=== PATIENT | female | born 1975 | race Caucasian/White ===

== ENCOUNTER 2016-12-26 10:33 | Emergency (ER) | payer MEDICAID ==
[2016-12-26] MEDS ORDERED: POTASSIUM BICARB 25 MEQ TABLET PO STA (13:06)
[2016-12-26] MEDS ORDERED: POTASSIUM BICARB 25 MEQ TABLET PO ONE (13:10)
[2016-12-26] MEDS ORDERED: ONDANSETRON ODT 4 MG TABLET TL STA (14:16)
[2016-12-26] MEDS ORDERED: MAG HYDROX/AL HYDROX/SIMETH 30 ML UDC PO STA (14:16)
[2016-12-26] MEDS ORDERED: MAG HYDROX/AL HYDROX/SIMETH 30 ML UDC ONE (14:25)
[2016-12-26] MEDS ORDERED: ONDANSETRON ODT 4 MG TABLET ONE (14:25)
[2016-12-26] MEDS ORDERED: LORazepam 0.5 MG TABLET PO STA (20:26)
[2016-12-26] MEDS ORDERED: LORazepam 0.5 MG TABLET ONE (20:29)
== END 2016-12-26 21:12 | disposition home or self-care (01) ==
DX: T42.6X1A Poisoning by other antiepileptic and sedative-hypnotic drugs, accidental (unintentional), initial encounter (principal); R53.83 Other fatigue; Y92.019 Unspecified place in single-family (private) house as the place of occurrence of the external cause; F32.9 Major depressive disorder, single episode, unspecified; E05.90 Thyrotoxicosis, unspecified without thyrotoxic crisis or storm; F10.129 Alcohol abuse with intoxication, unspecified
CPT/HCPCS: 36415; 80053; 80306; 80307; 80320; 80329; 81003; 81025; 83690; 84443; 85025; 93005; 99283; 99284; A9270; Q0162

== ENCOUNTER 2017-07-04 08:00 | Outpatient (CLI) | payer MEDICAID ==
[2017-07-04 14:17] LABS: INR 1.3 (0.8-1.2); PT - PROTHROMBIN TIME 14.2 secs (9.9-12.6)
[2017-07-04 15:01] LABS: THYROID STIMULATING HORMONE 1.86 uIU/mL (0.34-5.60)
[2017-07-04 15:02] LABS: ALBUMIN/GLOBULIN RATIO 1.4 (1.0-2.2); BILIRUBIN,TOTAL 0.3 mg/dL (0.2-1.0); BUN - BLOOD UREA NITROGEN 15 mg/dL (6-20); CALCIUM 8.2 mg/dL (8.5-10.3); CARBON DIOXIDE - CO2 29 mmol/L (21-32); CHLORIDE 108 mmol/L (101-111); CREATININE 0.7 mg/dL (0.4-1.0); GFR - MDRD 93 (>89); POTASSIUM 2.9 mmol/L (3.5-5.0); SODIUM 144 mmol/L (135-145); TOTAL PROTEIN 6.2 g/dL (6.7-8.2)
[2017-07-04 15:03] LABS: GLUCOSE 55 mg/dL (70-100)
[2017-07-04 15:09] LABS: FOLLICLE STIMULATING HORMONE 7.84 mIU/mL
[2017-07-04 15:10] LABS: LUTEINIZING HORMONE 2.34 mIU/mL
== END 2017-07-04 08:01 | disposition home or self-care (01) ==
LOC: LAB.N 08:00
PROVIDERS: ATTEND Nurse Practitioner Gerontology
DX: N91.2 Amenorrhea, unspecified (principal); R74.8 Abnormal levels of other serum enzymes; R94.6 Abnormal results of thyroid function studies; Z79.01 Long term (current) use of anticoagulants
CPT/HCPCS: 36415; 80053; 82670; 83001; 83002; 84443; 84703; 85610

== ENCOUNTER 2017-07-10 07:40 | Outpatient (CLI) | payer MEDICAID | END 2017-07-10 07:41 | disposition home or self-care (01) | LOC: LAB.N 07:40 | PROVIDERS: ATTEND Nurse Practitioner Gerontology | DX: Z79.01 Long term (current) use of anticoagulants (principal) | CPT/HCPCS: 85610 ==

== ENCOUNTER 2017-07-12 07:44 | Outpatient (CLI) | payer MEDICAID | END 2017-07-12 07:45 | disposition home or self-care (01) | LOC: LAB.N 07:44 | PROVIDERS: ATTEND Nurse Practitioner Gerontology | DX: Z79.01 Long term (current) use of anticoagulants (principal) | CPT/HCPCS: 85610 ==

== ENCOUNTER 2017-07-16 08:39 | Outpatient (CLI) | payer MEDICAID | END 2017-07-16 08:40 | disposition home or self-care (01) | LOC: LAB.N 08:39 | PROVIDERS: ATTEND Nurse Practitioner Gerontology | DX: Z79.01 Long term (current) use of anticoagulants (principal) | CPT/HCPCS: 85610 ==

== ENCOUNTER 2017-07-26 18:14 | Emergency (ER) | payer MEDICAID ==
[2017-07-26 18:27] VITALS: BP 106/74
--- NOTE | 2017-07-26 21:29 | ED Physician Documentation ---
PD HPI WOUND RECHECK - Stated complaint Stated Complaint: INCISION DRAINAGE - Chief complaint Chief Complaint: General - Histroy obtained from History obtained from: Patient - History of Present Illness Location: Abdomen Timing - onset: Today Associated symptoms: Drainage Similar symptoms before: Has not had sx before Recently seen: Surgery - Additional information Additional information: Patient is a 41 year old female who recently had hernia repair. Patient states that today she happened to be drinking chocolate milk with her shirt off. Patient states that after she drank some milk she looked down and her wound looked like it was also leaking chocolate milk. Review of Systems Constitutional: denies: Fever, Chills Eyes: reports: Reviewed and negative Ears: reports: Reviewed and negative Nose: reports: Reviewed and negative Throat: reports: Reviewed and negative Cardiac: denies: Chest pain / pressure, Palpitations Respiratory: denies: Dyspnea, Cough GI: reports: Abdominal Pain. denies: Nausea, Vomiting : denies: Dysuria, Frequency Skin: reports: Lesions, Laceration (s) Musculoskeletal: denies: Neck pain, Back pain Neurologic: reports: Reviewed and negative Immunocompromised: denies: Immunocompromised PD PAST MEDICAL HISTORY - Past Medical History Neuro: Headache/migraine, Other Endocrine/Autoimmune: HyPERthyroidism GI: Other Psych: Depression - Past Surgical History Past Surgical History: Yes General: Cholecystectomy, Other - Present Medications Home Medications: Ambulatory Orders Medication Instructions Recorded Confirmed FLUoxetine [PROzac] 10 mg PO DAILY 03/25/15 07/26/17 Dextroamphetamine/Amphetamine 35 mg PO DAILY 07/26/17 07/26/17 [Adderall 30 mg Tablet] Oxycodone HCl/Acetaminophen 1 tab PO DAILY 07/26/17 07/26/17 [Percocet 5-325 mg Tablet] acetaZOLAMIDE [Diamox] 250 mg PO DAILY 07/26/17 07/26/17 methIMAzole [Tapazole] 20 mg PO DAILY 07/26/17 07/26/17 - Allergies Allergies/Adverse Reactions: Allergies Allergy/AdvReac Type Severity Reaction Status Date / Time Heparin Analogues Allergy Mild Rash Verified 04/19/16 19:38 - Social History Does the pt smoke?: No Smoking Status: Never smoker Does the pt drink ETOH?: No Does the pt have substance abuse?: No Substance Use and Type: Marijuana - Immunizations Immunizations are current?: Yes - POLST Patient has POLST: No PD ED PE NORMAL - Vitals Vital signs reviewed: Yes - General General: Alert and oriented X 3, No acute distress - HEENT HEENT: Atraumatic, PERRL - Neck Neck: Supple, no meningeal sign - Cardiac Cardiac: RRR, No murmur - Respiratory Respiratory: No respiratory distress - Extremities Extremities: No deformity, Normal ROM s pain, No edema - Neuro Neuro: Alert and oriented X 3, No motor deficit, No sensory deficit, Normal speech - Psych Psych: Normal mood, Normal affect PD ED PE EXPANDED - Abdomen Abdomen: Surgical scars (well healing surgical scar, with minimal serous drainage) Results - Vitals Vitals: Vital Signs - 24 hr 07/26/17 18:25 Temperature 37.2 C Heart Rate 102 H Respiratory 18 Rate Blood Pressure 106/74 O2 Saturation 97 Oxygen O2 Source Room air PD MEDICAL DECISION MAKING - ED course Complexity details: reviewed old records, re-evaluated patient, considered differential, d/w patient ED course: Patient was seen and examined at bedside. patient's wound was well appearing with minimal serous discharge. Patient was able to tolerate PO without any difficulty and without any drainage. patient required no imaging or further work up and was stable for discharge with outpatient follow up. Departure - Departure Disposition: 01 Home, Self Care Clinical Impression: Encounter for postoperative wound check Condition: Good Instructions: ED Wound Care Follow-Up: Neetu Wong ARNP [Primary Care Provider] - Within 1 week Comments: Your wound looks well appearing today. You should continue with your wound care and follow up with your surgeon at your pre-determined appointment. You may return to the emergency department at any time as needed for new, worsening or uncontrollable symptoms. Discharge Date/Time: 07/26/17 21:40
== END 2017-07-26 21:40 | disposition home or self-care (01) ==
LOC: ED 18:14
DX: Z48.817 Encounter for surgical aftercare following surgery on the skin and subcutaneous tissue (principal)
CPT/HCPCS: 99282; 99283

== ENCOUNTER 2018-06-27 09:48 | Outpatient (CLI) | payer MEDICAID ==
[2018-06-27 10:00] LABS: BASOPHILS % (AUTO) 0.8 %; EOSINOPHILS # (AUTO) 0.1 10^3/uL (0.0-0.7); EOSINOPHILS % (AUTO) 2.7 %; HGB - HEMOGLOBIN 10.4 g/dL (12.0-16.0); LYMPHOCYTES # (AUTO) 1.4 10^3/uL (1.5-3.5); LYMPHOCYTES % (AUTO) 28.2 %; MEAN CORPUSCULAR HEMOGLOBIN 30.4 pg (27.0-31.0); MEAN CORPUSCULAR VOLUME 92.1 fL (81.0-99.0); MEAN PLATELET VOLUME 7.7 fL (7.9-10.8); MONOCYTES # (AUTO) 0.5 10^3/uL (0.0-1.0); MONOCYTES % (AUTO) 9.9 %; NEUTROPHILS % (AUTO) 58.4 %; PLT - PLATELET COUNT 336 10^3/uL (130-450); RED BLOOD COUNT 3.43 10^6/uL (4.20-5.40); RED CELL DISTRIBUTION WIDTH 15.2 % (12.0-15.0); WHITE BLOOD COUNT 5.1 x10^3/uL (4.8-10.8)
== END 2018-06-27 09:49 | disposition home or self-care (01) ==
LOC: LAB 09:48
PROVIDERS: ATTEND Nurse Practitioner Psychiatric/Mental Health
DX: F41.1 Generalized anxiety disorder (principal)
CPT/HCPCS: 36415; 85025

== ENCOUNTER 2019-01-02 11:19 | Emergency (ER) | payer MEDICAID ==
[2019-01-02 12:26] LABS: EOSINOPHILS # (AUTO) 0.1 10^3/uL (0.0-0.7); HGB - HEMOGLOBIN 9.3 g/dL (12.0-16.0); LYMPHOCYTES # (AUTO) 1.3 10^3/uL (1.5-3.5); LYMPHOCYTES % (AUTO) 31.1 %; MEAN CORPUSCULAR HEMOGLOBIN 26.8 pg (27.0-31.0); MEAN CORPUSCULAR HGB CONC 32.6 g/dL (32.0-36.0); MEAN CORPUSCULAR VOLUME 82.1 fL (81.0-99.0); MEAN PLATELET VOLUME 7.2 fL (7.9-10.8); MONOCYTES # (AUTO) 0.4 10^3/uL (0.0-1.0); MONOCYTES % (AUTO) 9.4 %; NEUTROPHILS # (AUTO) 2.4 10^3/uL (1.5-6.6); NEUTROPHILS % (AUTO) 56.5 %; PLT - PLATELET COUNT 386 10^3/uL (130-450); RED BLOOD COUNT 3.48 10^6/uL (4.20-5.40); RED CELL DISTRIBUTION WIDTH 17.4 % (12.0-15.0); WHITE BLOOD COUNT 4.3 x10^3/uL (4.8-10.8)
[2019-01-02 12:39] LABS: ALBUMIN 2.4 g/dL (3.2-5.5); ALBUMIN/GLOBULIN RATIO 0.8 (1.0-2.2); BILIRUBIN,TOTAL 0.6 mg/dL (0.2-1.0); CALCIUM 7.3 mg/dL (8.5-10.3); CREATININE 0.6 mg/dL (0.4-1.0); TOTAL PROTEIN 5.4 g/dL (6.7-8.2)
[2019-01-02 12:51] LABS: BILIRUBIN,URINE NEGATIVE (NEGATIVE); GLUCOSE, URINE (UA) NEGATIVE (NEGATIVE); KETONES,URINE (UA) TRACE mg/dL (NEGATIVE); LEUKOCYTE ESTERASE, URINE SMALL (NEGATIVE); NITRITE,URINE POSITIVE (NEGATIVE); OCCULT BLOOD,URINE NEGATIVE (NEGATIVE); PROTEIN,URINE TRACE mg/dL (NEGATIVE); UROBILINOGEN,URINE 1 (NORMAL) E.U./dL (NORMAL)
[2019-01-02 12:55] LABS: CLARITY,URINE CLOUDY (CLEAR); HCG UR QUAL NEGATIVE
[2019-01-02] MEDS ORDERED: FUROSEMIDE 20 MG TABLET PO STA (12:57)
[2019-01-02 12:59] LABS: BACTERIA,URINE Moderate /HPF (None Seen); RBC,URINE 0-5 /HPF (0-5); SQUAMOUS EPITHELIAL CELL,UR MANY Squamous (<= Few)
--- NOTE | 2019-01-02 13:44 | ED Physician Documentation ---
History of Present Illness - Stated complaint Stated Complaint: SWELLING IN LOWER ABD AND LEGS - Chief complaint Chief Complaint: General - History obtained from History obtained from: Patient - History of Present Illness Timing: How many days ago (4) - Additonal information Additional information: The patient is a 43-year-old female with a history of arthritis and daily alcohol use, who complains of swelling in her legs and feet as well as her fingers over the past 4 days. She has attributed it to an arthritic flare, but has not had this degree of swelling in the past. She denies fever, headache, cough or shortness of breath. She denies abdominal pain, nausea, vomiting, or dysuria. Past surgical history is significant for cholecystectomy, and umbili ninoska hernia repair. Review of Systems Constitutional: denies: Fever Nose: denies: Congestion Throat: denies: Sore throat Cardiac: denies: Chest pain / pressure Respiratory: denies: Dyspnea, Cough GI: denies: Abdominal Pain, Nausea, Vomiting : denies: Dysuria Skin: denies: Rash Musculoskeletal: reports: Extremity swelling. denies: Back pain Neurologic: denies: Focal weakness, Numbness, Headache PD PAST MEDICAL HISTORY - Past Medical History Endocrine/Autoimmune: HyPERthyroidism GI: Other Psych: Depression - Past Surgical History Past Surgical History: Yes General: Cholecystectomy, Other (Gastric Bypass) Other past surgical history: Incisional hernia repair - Present Medications Home Medications: Ambulatory Orders Medication Instructions Recorded Confirmed FLUoxetine [PROzac] 10 mg PO DAILY 03/25/15 01/02/19 Dextroamphetamine/Amphetamine 35 mg PO DAILY 07/26/17 01/02/19 [Adderall 30 mg Tablet] QUEtiapine [SEROquel] 50 mg PO QPM 01/02/19 01/02/19 - Allergies Allergies/Adverse Reactions: Allergies Allergy/AdvReac Type Severity Reaction Status Date / Time Heparin Analogues Allergy Mild Rash Verified 01/02/19 11:31 - Social History Does the pt smoke?: No Smoking Status: Never smoker Does the pt drink ETOH?: No Does the pt have substance abuse?: No - Immunizations Immunizations are current?: Yes - POLST Patient has POLST: No PD ED PE NORMAL - Vitals Vital signs reviewed: Yes (normal) - General General: Alert and oriented X 3, Well developed/nourished - HEENT HEENT: Atraumatic, Moist mucous membranes, Pharynx benign - Neck Neck: No adenopathy, No JVD - Cardiac Cardiac: RRR - Respiratory Respiratory: No respiratory distress, Clear bilaterally - Abdomen Abdomen: Soft, Non tender - Back Back: No CVA TTP - Derm Derm: No rash - Extremities Extremities: No tenderness to palpate, No calf tenderness / cord, Other (1+ peripheral edema.) - Neuro Neuro: Alert and oriented X 3, No motor deficit, No sensory deficit Results - Vitals Vitals: Oxygen O2 Source Room air - Labs Labs: Laboratory Tests 01/02/19 01/02/19 01/02/19 12:21 12:21 12:35 WBC 4.3 L RBC 3.48 L Hgb 9.3 L Hct 28.6 L MCV 82.1 MCH 26.8 L MCHC 32.6 RDW 17.4 H Plt Count 386 MPV 7.2 L Neut # (Auto) 2.4 Lymph # (Auto) 1.3 L Ward # (Auto) 0.4 Eos # (Auto) 0.1 Baso # (Auto) 0.0 Absolute Nucleated RBC 0.00 Nucleated RBC % 0.0 Sodium 138 Potassium 3.2 L Chloride 97 L Carbon Dioxide 32 Anion Gap 9.0 BUN 13 Creatinine 0.6 Estimated GFR (MDRD) 110 Glucose 93 Calcium 7.3 L Total Bilirubin 0.6 AST 46 H ALT 42 Alkaline Phosphatase 152 H Total Protein 5.4 L Albumin 2.4 L Globulin 3.0 Albumin/Globulin Ratio 0.8 L Lipase 26 Urine Color YELLOW Urine Clarity CLOUDY Urine pH 7.0 Ur Specific [place] 1.020 Urine Protein TRACE Urine Glucose (UA) NEGATIVE Urine Ketones TRACE Urine Occult Blood NEGATIVE Urine Nitrite POSITIVE H Urine Bilirubin NEGATIVE Urine Urobilinogen 1 (NORMAL) Ur Leukocyte Esterase SMALL H Urine RBC 0-5 Urine WBC 6-10 H Ur Squamous Epith Cells MANY Squamous H Urine Bacteria Moderate H Ur Microscopic Review INDICATED Urine Culture Comments NOT INDICATED Urine HCG, Qual NEGATIVE PD MEDICAL DECISION MAKING - ED course Complexity details: reviewed results, re-evaluated patient, considered differential, d/w patient ED course: The patient's presentation is significant for peripheral edema, without evidence of congestive heart failure. I suspect her edema may be related to daily alcohol use. In addition she is anemic, with a hemoglobin of 9.3 and hematocrit 28.6. Her urinalysis is equivocal, with many squamous cells, indicating contaminated specimen. There is no clinical evidence of acute pulmonary edema, deep venous thrombosis, or renal failure, with normal BUN and creatinine of 13 and 0.6. Treatment in the emergency department included administration of Lasix 20 mg orally. I discussed with her the importance of alcohol cessation, outpatient follow-up, as well as potentially worrisome signs or symptoms that should prompt reevaluation in the emergency department. Departure - Departure Disposition: 01 Home, Self Care Clinical Impression: Pedal edema Anemia Qualifiers: Anemia type: unspecified type Qualified Code(s): D64.9 - Anemia, unspecified Condition: Stable Instructions: ED Edema Legs Bilateral Follow-Up: Neetu oWng ARNP [Credentialed Staff Provider] - Comments: Keep your legs elevated as much the time as possible. Minimize or discontinue alcohol completely. Follow-up with your primary physician within 1-2 weeks. Call to schedule appointment. Return to the emergency department if you develop increasing pain or swelling of your legs, or otherwise worsening symptoms. Discharge Date/Time: 01/02/19 13:48
[2019-01-02 13:48] VITALS: BP 130/78
== END 2019-01-02 13:48 | disposition home or self-care (01) ==
LOC: ED 11:19
DX: R60.0 Localized edema (principal); D64.9 Anemia, unspecified
CPT/HCPCS: 36415; 80053; 81001; 81025; 83690; 85025; 99283; A9270; 81003; 87086

== ENCOUNTER 2019-03-05 11:09 | Outpatient (CLI) | payer MEDICAID ==
[2019-03-05 19:07] LABS: ALBUMIN 2.6 g/dL (3.2-5.5); ALBUMIN/GLOBULIN RATIO 0.7 (1.0-2.2); ALKALINE PHOSPHATASE 72 IU/L (42-121); ALT ALANINE AMINOTRANSFERASE 18 IU/L (10-60); AST ASPARTATE AMINOTRANSFERASE 24 IU/L (10-42); BILIRUBIN,TOTAL 0.3 mg/dL (0.2-1.0); BUN - BLOOD UREA NITROGEN 14 mg/dL (6-20); CALCIUM 8.2 mg/dL (8.5-10.3); CARBON DIOXIDE - CO2 29 mmol/L (21-32); CHLORIDE 104 mmol/L (101-111); CREATININE 0.8 mg/dL (0.4-1.0); GFR - MDRD 79 (>89); GLUCOSE 82 mg/dL (70-100); SODIUM 141 mmol/L (135-145); TOTAL PROTEIN 6.5 g/dL (6.7-8.2)
[2019-03-05 19:26] LABS: CRP - C-REACTIVE PROTEIN < 1.0 mg/dL (0-1.0)
[2019-03-05 19:32] LABS: RHEUMATOID FACTOR NEGATIVE (Negative)
[2019-03-07 15:01] LABS: ANA SCREEN NEGATIVE (NEGATIVE)
== END 2019-03-05 23:59 | disposition home or self-care (01) ==
LOC: LAB.N 11:09
PROVIDERS: ATTEND Nurse Practitioner Gerontology
DX: R74.8 Abnormal levels of other serum enzymes (principal); M25.50 Pain in unspecified joint
CPT/HCPCS: 36415; 80053; 85651; 86038; 86140; 86430

== ENCOUNTER 2019-04-03 21:54 | Emergency (ER) | payer MEDICAID ==
[2019-04-03] MEDS ORDERED: MAG HYDROX/AL HYDROX/SIMETH 30 ML UDC PO STA (22:17)
[2019-04-03] MEDS ORDERED: SUCRALFATE 1 GM/10 ML UDC PO STA (22:17)
[2019-04-03] MEDS ORDERED: PHENobarb/HYOSCY/ATROPINE/SCOP 5 ML UDC PO STA (22:17)
[2019-04-03] MEDS ORDERED: LIDOCAINE VISCOUS 2% 15 ML UDC MM STA (22:17)
[2019-04-03 22:19] LABS: BASOPHILS # (AUTO) 0.1 10^3/uL (0.0-0.1); EOSINOPHILS % (AUTO) 0.7 %; HGB - HEMOGLOBIN 8.6 g/dL (12.0-16.0); LYMPHOCYTES # (AUTO) 1.5 10^3/uL (1.5-3.5); LYMPHOCYTES % (AUTO) 21.6 %; MEAN CORPUSCULAR HEMOGLOBIN 28.3 pg (27.0-31.0); MEAN CORPUSCULAR HGB CONC 32.7 g/dL (32.0-36.0); MEAN CORPUSCULAR VOLUME 86.7 fL (81.0-99.0); MEAN PLATELET VOLUME 6.8 fL (7.9-10.8); MONOCYTES # (AUTO) 0.5 10^3/uL (0.0-1.0); MONOCYTES % (AUTO) 7.4 %; NEUTROPHILS # (AUTO) 4.8 10^3/uL (1.5-6.6); NEUTROPHILS % (AUTO) 69.3 %; PLT - PLATELET COUNT 321 10^3/uL (130-450); RED BLOOD COUNT 3.04 10^6/uL (4.20-5.40); RED CELL DISTRIBUTION WIDTH 16.7 % (12.0-15.0)
--- NOTE | 2019-04-03 22:21 | ED Physician Documentation ---
PD HPI ABD PAIN - Stated complaint Stated Complaint: ABD PX - Chief complaint Chief Complaint: Abd Pain - History obtained from History obtained from: Patient - History of Present Illness Timing - onset: How many hours ago (2) Timing - duration: Hours (2) Timing - details: Abrupt onset Pain level max: 8 Pain level now: 6 Quality: Aching, Pain Location: Epigastric Radiation: Other (mid back) Improved by: Other (states tums, nexium and ranitidine helped slightly) Worsened by: Other (started after taking iron and ibuprofen.) Associated symptoms: No: Fever, Nausea, Vomiting, Hematemesis, Diarrhea, Constipation, Melena, Hematochezia, Dysuria, Hematuria, Chest pain, Dizzy, Near syncope / syncope, Loss of appetite, Weight loss, Vaginal bleeding, Vaginal dc Similar symptoms before: Diagnosis (" stomach issues") Recently seen: Not recently seen Review of Systems Constitutional: denies: Fever, Chills Respiratory: denies: Cough GI: denies: Vomiting, Diarrhea : denies: Now EGA Skin: denies: Rash PD PAST MEDICAL HISTORY - Past Medical History Past Medical History: Yes Endocrine/Autoimmune: HyPERthyroidism GI: Other Psych: Depression - Past Surgical History Past Surgical History: Yes General: Cholecystectomy, Other - Present Medications Home Medications: Ambulatory Orders Medication Instructions Recorded Confirmed FLUoxetine [PROzac] 10 mg PO DAILY 03/25/15 01/02/19 Dextroamphetamine/Amphetamine 35 mg PO DAILY 07/26/17 01/02/19 [Adderall 30 mg Tablet] QUEtiapine [SEROquel] 50 mg PO QPM 01/02/19 01/02/19 Hyoscyamine Sulfate [Levsin-Sl] 0.125 mg SL Q6H PRN #14 tab.subl 04/03/19 Sucralfate [Carafate] 1 gm PO ACHS #60 tablet 04/03/19 - Allergies Allergies/Adverse Reactions: Allergies Allergy/AdvReac Type Severity Reaction Status Date / Time Heparin Analogues Allergy Mild Rash Verified 01/02/19 11:31 - Social History Does the pt smoke?: No Smoking Status: Never smoker Does the pt drink ETOH?: No Does the pt have substance abuse?: No - Immunizations Immunizations are current?: Yes - POLST Patient has POLST: No PD ED PE NORMAL - Vitals Vital signs reviewed: Yes - General General: Alert and oriented X 3, No acute distress - HEENT HEENT: Moist mucous membranes - Neck Neck: Supple, no meningeal sign - Cardiac Cardiac: RRR, Strong equal pulses - Respiratory Respiratory: No respiratory distress, Clear bilaterally - Abdomen Abdomen: Soft, Non distended, Other (TTP epigastric without peritoneal signs.) - Derm Derm: Warm and dry - Neuro Neuro: Alert and oriented X 3 Results - Vitals Vitals: Vital Signs - 24 hr 04/03/19 04/03/19 22:02 23:50 Temperature 36.4 C L Heart Rate 58 L 60 Respiratory 18 16 Rate Blood Pressure 126/50 L 118/70 O2 Saturation 100 99 Oxygen O2 Source Room air - Labs Labs: Laboratory Tests 04/03/19 04/03/19 22:13 22:13 WBC 7.0 RBC 3.04 L Hgb 8.6 L Hct 26.4 L MCV 86.7 MCH 28.3 MCHC 32.7 RDW 16.7 H Plt Count 321 MPV 6.8 L Neut # (Auto) 4.8 Lymph # (Auto) 1.5 Martin # (Auto) 0.5 Eos # (Auto) 0.0 Baso # (Auto) 0.1 Absolute Nucleated RBC 0.00 Nucleated RBC % 0.0 Sodium 138 Potassium 3.2 L Chloride 104 Carbon Dioxide 23 Anion Gap 11.0 BUN 19 Creatinine 0.7 Estimated GFR (MDRD) 92 Glucose 108 H Calcium 8.3 L Total Bilirubin 0.4 AST 23 ALT 16 Alkaline Phosphatase 81 Total Protein 6.8 Albumin 3.3 Globulin 3.5 Albumin/Globulin Ratio 0.9 L Lipase 31 PD MEDICAL DECISION MAKING - ED course Complexity details: reviewed results, re-evaluated patient, considered differential, d/w patient ED course: 43-year-old female with epigastric abdominal pain that started after taking iron and ibuprofen together. Feels better after GI cocktail. Likely gastritis. Has not been taking her Nexium and ranitidine reliably. Will start these at home. We will also prescribe Carafate and Levsin. Patient is well-appearing, nontoxic. Afebrile. No evidence of peritonitis. Patient counseled regarding signs and symptoms for which I believe and urgent re-evaluation would be necessary. Patient with good understanding of and agreement to plan and is comfortable going home at this time This document was made in part using voice recognition software. While efforts are made to proofread this document, sound alike and grammatical errors may occur. Departure - Departure Disposition: 01 Home, Self Care Clinical Impression: Gastritis Qualifiers: Gastritis type: unspecified gastritis Chronicity: acute Gastritis bleeding: without bleeding Qualified Code(s): K29.00 - Acute gastritis without bleeding Condition: Good Instructions: ED PUD Vs Gastritis Follow-Up: Neetu Wong ARNP [Primary Care Provider] - Within 1 week Prescriptions: Hyoscyamine Sulfate [Levsin-Sl] 0.125 mg SL Q6H PRN #14 tab.subl PRN Reason: Abdominal Pain Sucralfate [Carafate] 1 gm PO ACHS #60 tablet Comments: You need to have your red blood cell counts rechecked with your doctor in a week. Please make sure that you are taking your ranitidine and Nexium daily. Follow-up with your doctor for further care. Try to avoid medications such as ibuprofen and Aleve. Return if you worsen Discharge Date/Time: 04/03/19 23:58
[2019-04-03 22:32] LABS: ALBUMIN 3.3 g/dL (3.2-5.5); ALBUMIN/GLOBULIN RATIO 0.9 (1.0-2.2); BILIRUBIN,TOTAL 0.4 mg/dL (0.2-1.0); CALCIUM 8.3 mg/dL (8.5-10.3); CREATININE 0.7 mg/dL (0.4-1.0); TOTAL PROTEIN 6.8 g/dL (6.7-8.2)
[2019-04-03] MEDS ORDERED: HYOSCYAMINE SL 0.125 MG TABLET SL STA (23:31)
[2019-04-03] MEDS ORDERED: HYDROcod/ACETAM 5/325 MG TABLET PO STA (23:31)
[2019-04-03 23:51] VITALS: BP 118/70
== END 2019-04-03 23:58 | disposition home or self-care (01) ==
LOC: ED 21:54
DX: K29.00 Acute gastritis without bleeding (principal)
CPT/HCPCS: 80053; 83690; 85025; 99283; A9270

== ENCOUNTER 2019-06-09 19:16 | Emergency (ER) | payer MEDICAID ==
[2019-06-09] MEDS ORDERED: oxyCODONE 5 MG TABLET PO STA (19:32)
--- NOTE | 2019-06-09 19:34 | ED Physician Documentation ---
PD HPI MAJOR TRAUMA - Stated complaint Stated Complaint: CHEST INJ - Chief complaint Chief Complaint: Trauma Ch/Bk - History obtained from History obtained from: Patient - History of Present Illness Mechanism of injury: Blow (She was walking a wheelbarrow full of rocks up a hill and she tripped and fell forward hitting the handle of the wheelbarrow directly into her sternum with moderate to severe pain there especially with movement and deep breathing. This happened today just a few hours ago.) Where injury occurred: Home Review of Systems Constitutional: reports: Reviewed and negative Nose: reports: Reviewed and negative Throat: reports: Reviewed and negative Respiratory: reports: Reviewed and negative PD PAST MEDICAL HISTORY - Past Medical History Endocrine/Autoimmune: HyPERthyroidism GI: Other Psych: Depression - Past Surgical History Past Surgical History: Yes General: Cholecystectomy, Other - Present Medications Home Medications: Ambulatory Orders Medication Instructions Recorded Confirmed FLUoxetine [PROzac] 10 mg PO DAILY 03/25/15 01/02/19 Dextroamphetamine/Amphetamine 35 mg PO DAILY 07/26/17 01/02/19 [Adderall 30 mg Tablet] QUEtiapine [SEROquel] 50 mg PO QPM 01/02/19 01/02/19 Hyoscyamine Sulfate [Levsin-Sl] 0.125 mg SL Q6H PRN #14 tab.subl 04/03/19 Sucralfate [Carafate] 1 gm PO ACHS #60 tablet 04/03/19 Hydrocodone/Acetaminophen 1 - 2 each PO Q6H PRN #14 tablet 06/09/19 [Hydrocodon-Acetaminophen 5-325] - Allergies Allergies/Adverse Reactions: Allergies Allergy/AdvReac Type Severity Reaction Status Date / Time Heparin Analogues Allergy Mild Rash Verified 01/02/19 11:31 topiramate [From Topamax] Allergy Unknown Verified 04/06/19 12:15 - Social History Does the pt smoke?: No Smoking Status: Never smoker Does the pt drink ETOH?: No Does the pt have substance abuse?: No - Immunizations Immunizations are current?: Yes - POLST Patient has POLST: No PD ED PE NORMAL - Vitals Vital signs reviewed: Yes - General General: Alert and oriented X 3, No acute distress - Cardiac Cardiac: RRR, No murmur - Respiratory Respiratory: No respiratory distress, Clear bilaterally, Other (Chest exam was done with the nurse at the bedside. She has sequela of hernia repair and bilateral breast reduction. She is quite tender over the upper sternum especially on the right side without deformity or bruising.) - Neuro Neuro: Alert and oriented X 3, Normal speech Results - Vitals Vitals: Vital Signs - 24 hr 06/09/19 19:18 Temperature 36.5 C Heart Rate 87 Respiratory 14 Rate Blood Pressure 130/83 H O2 Saturation 99 Oxygen O2 Source Room air - Rads (name of study) CT Chest Radiology: EMP read contemporaneously (no traumatic inj) PD MEDICAL DECISION MAKING - ED course Complexity details: reviewed old records (She does have a history of alcohol abuse but has not drank in a few years.) Departure - Departure Disposition: 01 Home, Self Care Clinical Impression: Contusion of chest wall Qualifiers: Encounter type: initial encounter Laterality: right Qualified Code(s): S20.211A - Contusion of right front wall of thorax, initial encounter Condition: Good Record reviewed to determine appropriate education?: Yes Instructions: ED Contusion Chest Wall Prescriptions: Hydrocodone/Acetaminophen [Hydrocodon-Acetaminophen 5-325] 1 - 2 each PO Q6H PRN #14 tablet PRN Reason: pain Comments: Recheck with your doctor early next week if not better, return for new or worsening symptoms. You can take Tylenol or ibuprofen as needed for your pain.
[2019-06-09] MEDS ORDERED: IOVERSOL 320 100 ML VIAL IVP ONE ×2 (20:14→20:31)
--- NOTE | 2019-06-09 20:46 | CT Report ---
Reason: Anterior chest wall trauma Procedure Date: 06/09/2019 Accession Number: [id number] / [id number] Procedure: CT - CHEST W CPT Code: FULL RESULT: EXAM: CT CHEST. EXAM DATE: 06/09/2019 08:17 PM. CLINICAL HISTORY: Anterior chest wall trauma. Anterior wall chest pain. COMPARISONS: ABDOMEN/PELVIS W/O 11/27/2015 5:06 PM. TECHNIQUE: Routine helical CT imaging was performed through the chest. IV contrast: None. Reconstructions: Coronal and sagittal. In accordance with CT protocol optimization, one or more of the following dose reduction techniques were utilized for this exam: automated exposure control, adjustment of mA and/or KV based on patient size, or use of iterative reconstructive technique. FINDINGS: Upper abdomen: Status post cholecystectomy. Severe common duct dilatation measuring 2 cm, similar to the prior. Postsurgical changes at the gastroesophageal junction. Small hiatal hernia. Small fluid seen in the mid to distal esophagus. Normal heart size. No thoracic aortic aneurysm, dissection or laceration. No mediastinal or hilar lymphadenopathy. No mediastinal blood or pneumomediastinum. Lungs: Right upper lobe air cyst seen in the right hepatic lobe measuring 2.7 cm. No pleural effusion, consolidation, airspace disease or pneumothorax. Bones: No acute bone findings. IMPRESSION: 1. Status post cholecystectomy. Severe common duct dilatation measuring 2 cm, similar to the prior. 2. Postsurgical changes at the gastroesophageal junction. Small hiatal hernia. Small fluid seen in the mid to distal esophagus. 3. No acute findings are seen. See above. RADIA
[2019-06-09] MEDS ORDERED: HYDROcod/ACET 5/325 Prepack 4 PO STA (20:59)
[2019-06-09 21:03] VITALS: BP 118/74
== END 2019-06-09 21:07 | disposition home or self-care (01) ==
LOC: ED 19:16
DX: S20.211A Contusion of right front wall of thorax, initial encounter (principal); W01.198A Fall on same level from slipping, tripping and stumbling with subsequent striking against other object, initial encounter; Y93.89 Activity, other specified; Y92.008 Other place in unspecified non-institutional (private) residence as the place of occurrence of the external cause
CPT/HCPCS: 71260; 99283; 99284; A9270; Q9967

== ENCOUNTER 2019-06-28 17:02 | Emergency (ER) | payer MEDICAID ==
[2019-06-28 17:07] VITALS: BP 129/88
[2019-06-28] MEDS ORDERED: CETIRIZINE 10 MG TABLET PO STA (17:15)
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
== END 2019-06-28 17:25 | disposition home or self-care (01) ==
LOC: ED 17:02
DX: T63.461A Toxic effect of venom of wasps, accidental (unintentional), initial encounter (principal); X58.XXXA Exposure to other specified factors, initial encounter
CPT/HCPCS: 99282; A9270

== ENCOUNTER 2019-10-12 09:01 | Outpatient (CLI) | payer MEDICAID | END 2019-10-12 23:59 | disposition home or self-care (01) | LOC: LAB.N 09:01 | PROVIDERS: ATTEND Nurse Practitioner Gerontology | DX: E87.6 Hypokalemia (principal) | CPT/HCPCS: 36415; 84132 ==

== ENCOUNTER 2020-02-29 12:02 | Emergency (ER) | payer MEDICAID ==
--- NOTE | 2020-02-29 13:40 | ED Physician Documentation ---
History of Present Illness - Stated complaint Stated Complaint: FEMALE - Chief complaint Chief Complaint: Ext Problem - History obtained from History obtained from: Patient - History of Present Illness Timing: How many weeks ago (1) Pain level max: 5 Pain level now: 4 - Additonal information Additional information: 44-year-old female presents to the emergency department stating that she pulled her left groin approximately a week ago while doing yard work. States worse with movement and better with rest. Taking Aleve with some relief. No redness. No swelling. No numbness or tingling. No loss of bowel or bladder control. Review of Systems Constitutional: denies: Fever : denies: Incontinent, Now EGA Skin: denies: Rash Musculoskeletal: denies: Neck pain, Back pain Neurologic: denies: Focal weakness, Numbness PD PAST MEDICAL HISTORY - Past Medical History Cardiovascular: None Respiratory: None Neuro: None Endocrine/Autoimmune: HyPERthyroidism GI: None LPN CMA: None : None HEENT: None Psych: Depression Musculoskeletal: None Derm: None - Past Surgical History Past Surgical History: Yes General: Cholecystectomy, Other Ortho: Other - Present Medications Home Medications: Ambulatory Orders Medication Instructions Recorded Confirmed FLUoxetine [PROzac] 10 mg PO DAILY 03/25/15 01/02/19 Dextroamphetamine/Amphetamine 35 mg PO DAILY 07/26/17 01/02/19 [Adderall 30 mg Tablet] QUEtiapine [SEROquel] 50 mg PO QPM 01/02/19 01/02/19 Hyoscyamine Sulfate [Levsin-Sl] 0.125 mg SL Q6H PRN #14 tab.subl 04/03/19 Sucralfate [Carafate] 1 gm PO ACHS #60 tablet 04/03/19 Hydrocodone/Acetaminophen 1 - 2 each PO Q6H PRN #14 tablet 06/09/19 [Hydrocodon-Acetaminophen 5-325] Cyclobenzaprine [Flexeril] 10 mg PO TID PRN #10 tablet 02/29/20 Meloxicam [Mobic] 15 mg PO DAILY PRN #20 tablet 02/29/20 - Allergies Allergies/Adverse Reactions: Allergies Allergy/AdvReac Type Severity Reaction Status Date / Time Heparin Analogues Allergy Mild Rash Verified 02/29/20 12:08 topiramate [From Topamax] Allergy Unknown Verified 02/29/20 12:08 - Social History Does the pt smoke?: No Smoking Status: Never smoker Does the pt drink ETOH?: No Does the pt have substance abuse?: No - Immunizations Immunizations are current?: Yes - POLST Patient has POLST: No PD ED PE NORMAL - Vitals Vital signs reviewed: Yes - General General: Alert and oriented X 3, No acute distress, Well developed/nourished - HEENT HEENT: Moist mucous membranes - Back Back: No CVA TTP, No spinal TTP - Derm Derm: Warm and dry - Extremities Extremities: Other (Tender to palpation in the medial aspect of the proximal left thigh. No swelling. No erythema. Neurovascular intact. No bony tenderness. Full range of motion of the left leg in all major joints.) - Neuro Neuro: Alert and oriented X 3 - Psych Psych: Normal mood, Normal affect Results - Vitals Vitals: Vital Signs - 24 hr 02/29/20 12:08 Temperature 36.5 C Heart Rate 92 Respiratory 16 Rate Blood Pressure 120/83 H O2 Saturation 99 Oxygen O2 Source Room air PD MEDICAL DECISION MAKING - ED course Complexity details: considered differential, d/w patient ED course: Patient with a left groin strain. Will place on anti-inflammatories and muscle relaxants. She is well-appearing, nontoxic. Afebrile. Ambulating without difficulty. Patient counseled regarding signs and symptoms for which I believe and urgent re-evaluation would be necessary. Patient with good understanding of and agreement to plan and is comfortable going home at this time This document was made in part using voice recognition software. While efforts are made to proofread this document, sound alike and grammatical errors may occur. Departure - Departure Disposition: 01 Home, Self Care Clinical Impression: Strain of left groin Condition: Good Instructions: ED Strain Groin Follow-Up: Yessica Parsons PA [Primary Care Provider] - Within 1 week Prescriptions: Cyclobenzaprine [Flexeril] 10 mg PO TID PRN #10 tablet PRN Reason: Spasms Meloxicam [Mobic] 15 mg PO DAILY PRN #20 tablet PRN Reason: pain Comments: Follow-up with your doctor for further care. Return if you worsen. Compression may help as well. This will likely take 4 to 6 weeks to fully heal. Do not drive or operate heavy machinery while taking Flexeril.
[2020-02-29 13:53] VITALS: BP 118/85
== END 2020-02-29 13:56 | disposition home or self-care (01) ==
LOC: ED 12:02
DX: S39.011A Strain of muscle, fascia and tendon of abdomen, initial encounter (principal); X50.9XXA Other and unspecified overexertion or strenuous movements or postures, initial encounter; Y93.H2 Activity, gardening and landscaping
CPT/HCPCS: 99282; 99284

== ENCOUNTER 2021-01-21 07:00 | Outpatient (CLI) | payer MEDICAID ==
[2021-01-21 16:58] LABS: HCT - HEMATOCRIT 28.9 % (37.0-47.0); HGB - HEMOGLOBIN 8.3 g/dL (12.0-16.0); MEAN CORPUSCULAR HEMOGLOBIN 25.3 pg (27.0-31.0); MEAN CORPUSCULAR HGB CONC 28.7 g/dL (32.0-36.0); MEAN CORPUSCULAR VOLUME 88.1 fL (81.0-99.0); MEAN PLATELET VOLUME 9.6 fL (7.9-10.8); RED BLOOD COUNT 3.28 10^6/uL (4.20-5.40); RED CELL DISTRIBUTION WIDTH 18.8 % (12.0-15.0); WHITE BLOOD COUNT 6.9 x10^3/uL (4.8-10.8)
[2021-01-21 17:18] LABS: CRP - C-REACTIVE PROTEIN < 1.0 mg/dL (0-1.0); URIC ACID 2.8 mg/dL (2.6-7.2)
[2021-01-21 19:03] LABS: RHEUMATOID FACTOR NEGATIVE (Negative)
[2021-01-24 09:56] LABS: ANA SCREEN NEGATIVE (NEGATIVE)
[2021-01-24 11:47] LABS: DNA (DS) ANTIBODY <1 IU/mL
[2021-01-24 20:37] LABS: CYCLIC CITRULL PEPTIDE CCP IGG <16 UNITS
== END 2021-01-21 23:59 | disposition home or self-care (01) ==
LOC: LAB.N 07:00
PROVIDERS: ATTEND Family Medicine
DX: M19.90 Unspecified osteoarthritis, unspecified site (principal)
CPT/HCPCS: 36415; 84550; 85027; 85651; 86038; 86140; 86200; 86225; 86430

== ENCOUNTER 2021-01-27 18:00 | Emergency (ER) | payer MEDICAID ==
[2021-01-27] MEDS ORDERED: HYDROcod/ACETAM 5/325 MG TABLET PO STA (19:03)
--- NOTE | 2021-01-27 19:16 | ED Physician Documentation ---
History of Present Illness - Stated complaint Stated Complaint: GROIN PX - Chief complaint Chief Complaint: General - History obtained from History obtained from: Patient - History of Present Illness Timing: Chronic (worse for the past 2-3 days.) Pain level max: 8 Pain level now: 8 - Additonal information Additional information: L hip pain x 3-4 days. Has a history of BLE joint swelling. Recently treated with methylprednisolone. The joint swelling improved but has continued to have left hip pain. Worse with movement better with rest. Denies any trauma or known injury. No fevers. No chills. 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 : None HEENT: None Psych: Depression Musculoskeletal: None Derm: None - Past Surgical History Past Surgical History: Yes General: Cholecystectomy, Other Ortho: Other - Present Medications Home Medications: Ambulatory Orders Medication Instructions Recorded Confirmed FLUoxetine [PROzac] 10 mg PO DAILY 03/25/15 01/27/21 Dextroamphetamine/Amphetamine 35 mg PO DAILY 07/26/17 01/27/21 [Adderall 30 mg Tablet] QUEtiapine [SEROquel] 50 mg PO QPM 01/02/19 01/27/21 Meloxicam [Mobic] 15 mg PO DAILY PRN #20 tablet 02/29/20 01/27/21 HYDROcod/ACETAM 5/325 [Benavides 5/325] 1 - 2 ea PO Q6H PRN #14 tablet 01/27/21 - Allergies Allergies/Adverse Reactions: Allergies Allergy/AdvReac Type Severity Reaction Status Date / Time Heparin Analogues Allergy Mild Rash Verified 01/27/21 18:04 topiramate [From Topamax] Allergy Unknown Verified 01/27/21 18:04 - Social History Does the pt smoke?: No Smoking Status: Never smoker Does the pt drink ETOH?: Yes Does the pt have substance abuse?: No - Immunizations Immunizations are current?: Yes - POLST Patient has POLST: No PD ED PE NORMAL - Vitals Vital signs reviewed: Yes - General General: Alert and oriented X 3, No acute distress - HEENT HEENT: Moist mucous membranes - Neck Neck: Supple, no meningeal sign - Back Back: No spinal TTP - Derm Derm: Warm and dry - Extremities Extremities: No edema, No calf tenderness / cord, Other (TTP L pubic ramus, pain with external rotation of the hip. NVI. Otherwise normal exam of the extremity.) - Neuro Neuro: Alert and oriented X 3 - Psych Psych: Normal mood, Normal affect Results - Vitals Vitals: Vital Signs - 24 hr 01/27/21 01/27/21 18:06 20:04 Temperature 36.4 C L 36.7 C Heart Rate 70 64 Respiratory 19 16 Rate Blood Pressure 119/72 134/91 H O2 Saturation 100 100 Oxygen O2 Source Room air - Rads (name of study) L hip xray Radiology: Prelim report reviewed, EMP read contemporaneously, See rad report PD MEDICAL DECISION MAKING - ED course Complexity details: reviewed old records, reviewed results, re-evaluated patient, considered differential, d/w patient ED course: 45-year-old female with left hip pain for several weeks. She is found to have mildly displaced fractures of the left superior and inferior pubic rami. There is sclerosis at the site. She does have a walker at home. We will prescribe pain medication, weightbearing as tolerated and follow-up with orthopedics for further care. Patient counseled regarding signs and symptoms for which I believe and urgent re-evaluation would be necessary. Patient with good understanding of and agreement to plan and is comfortable going home at this time This document was made in part using voice recognition software. While efforts are made to proofread this document, sound alike and grammatical errors may occur. 1. Mildly displaced fractures of the left superior and inferior pubic rami. Sclerosis along the fracture margins and partial bridging callus are compatible with nonacute healing fractures. Departure - Departure Disposition: 01 Home, Self Care Clinical Impression: Pubic ramus fracture Qualifiers: Encounter type: initial encounter Fracture type: closed Laterality: left Qualified Code(s): S32.592A - Other specified fracture of left pubis, initial encounter for closed fracture Condition: Good Instructions: ED Fx Pelvis Follow-Up: [facility] [Provider Group] - Within 1 week Prescriptions: HYDROcod/ACETAM 5/325 [Benavides 5/325] 1 - 2 ea PO Q6H PRN #14 tablet PRN Reason: Pain Comments: Follow-up with orthopedics for further care. Return if you worsen. It is unclear when the fractures occurred. You likely need a referral to rheumatology for your joint swelling issues. An orthopedist may be able to help as well. You should follow-up with orthopedics regarding your pelvic fracture. Use your walker at home to help you ambulate and take pressure off of the pelvis while it heals. Do not drink alcohol or drive while on narcotic pain medicine. Note that many narcotic pain relievers also contain tylenol/acetaminophen. Please ensure that your total dose of acetaminophen from all sources does not exceed 3 grams (3000mg) per day. You may constipated on this medication, take a stool softener such as "Colace" twice a day while you are on it. Also recommend a zqdu-xtc-exbdwel laxative such as senna or MiraLAX any day that you do not have a bowel movement. If you received narcotic pain medication in the emergency department, do not drive or operate machinery for the next 24 hours. 1. Mildly displaced fractures of the left superior and inferior pubic rami. Sclerosis along the fracture margins and partial bridging callus are compatible with nonacute healing fractures. Discharge Date/Time: 01/27/21 20:44
--- NOTE | 2021-01-27 19:38 | XRAY Report ---
PROCEDURE: Hip w/Pelvis 2-3V LT INDICATIONS: L hip pain no trauma TECHNIQUE: AP pelvis with lateral view of the left hip. COMPARISON: None. FINDINGS: Bones: There are mildly displaced fractures of the left superior and inferior pubic rami with sclero sis along the fracture margins. There is partial bridging callus. No hip fracture identified. No disl ocations. No suspicious bony lesions. Soft tissues: The visualized bowel gas pattern is normal. No suspicious soft tissue calcifications. IMPRESSION: 1. Mildly displaced fractures of the left superior and inferior pubic rami. Sclerosis along the fract ure margins and partial bridging callus are compatible with nonacute healing fractures. Reviewed by: Brooks Jordan MD on 01/27/2021 7:37 PM PDT Approved by: Brooks Jordan MD on 01/27/2021 7:37 PM PDT Station ID: [id number]
[2021-01-27 20:04] VITALS: BP 134/91
[2021-01-27] MEDS ORDERED: HYDROcod/ACET 5/325 Prepack 4 PO STA (20:15)
--- OUTSIDE RECORDS SUMMARY | 2021-02-01 02:21 | EXTERNAL MEDICAL SUMMARY RPT | Continuity of Care Document ---
:1975 Demographics Phone Unavailable Preferred Language Unknown Marital Status Unknown Oriental Orthodox Affiliation Unknown Race Unknown Ethnic Group Unknown Author Organization [place] Address [address] [place] [address] Phone Social History date description facility [phone]
== END 2021-01-27 20:44 | disposition home or self-care (01) ==
LOC: ED 18:00
DX: S32.511A Fracture of superior rim of right pubis, initial encounter for closed fracture (principal); X58.XXXA Exposure to other specified factors, initial encounter
CPT/HCPCS: 73502; 99283; 99284; A9270

== ENCOUNTER 2021-02-01 08:00 | Outpatient (CLI) | payer MEDICAID ==
[2021-02-01 11:56] LABS: BASOPHILS # (AUTO) 0.1 10^3/uL (0.0-0.1); BASOPHILS % (AUTO) 0.7 %; EOSINOPHILS # (AUTO) 0.1 10^3/uL (0.0-0.7); EOSINOPHILS % (AUTO) 1.1 %; HGB - HEMOGLOBIN 8.4 g/dL (12.0-16.0); LYMPHOCYTES # (AUTO) 1.9 10^3/uL (1.5-3.5); LYMPHOCYTES % (AUTO) 22.2 %; MEAN CORPUSCULAR HEMOGLOBIN 25.1 pg (27.0-31.0); MEAN CORPUSCULAR VOLUME 89.8 fL (81.0-99.0); MEAN PLATELET VOLUME 9.3 fL (7.9-10.8); MONOCYTES # (AUTO) 0.8 10^3/uL (0.0-1.0); MONOCYTES % (AUTO) 8.6 %; NEUTROPHILS # (AUTO) 5.8 10^3/uL (1.5-6.6); NEUTROPHILS % (AUTO) 66.4 %; PLT - PLATELET COUNT 471 10^3/uL (130-450); RED BLOOD COUNT 3.34 10^6/uL (4.20-5.40); RED CELL DISTRIBUTION WIDTH 19.2 % (12.0-15.0); WHITE BLOOD COUNT 8.7 x10^3/uL (4.8-10.8)
[2021-02-01 12:20] LABS: ESTIMATED AVERAGE GLUCOSE 88 mg/dL (70-100); HEMOGLOBIN A1c% 4.7 % (4.27-6.07)
[2021-02-01 12:22] LABS: SLIDE REVIEW? Indicated
[2021-02-01 12:35] LABS: PLATELET ESTIMATE, MANUAL NORMAL (130-450,000) (NORMAL); PLATELET MORPHOLOGY NORMAL APPEARANCE (NORMAL)
[2021-02-01 12:54] LABS: THYROID STIMULATING HORMONE 1.65 uIU/mL (0.34-5.60)
[2021-02-01 12:56] LABS: % IRON SATURATION 8 % (20-50); ALBUMIN 2.7 g/dL (3.2-5.5); ALBUMIN/GLOBULIN RATIO 0.7 (1.0-2.2); ALKALINE PHOSPHATASE 286 IU/L (42-121); ALT ALANINE AMINOTRANSFERASE 26 IU/L (10-60); AST ASPARTATE AMINOTRANSFERASE 28 IU/L (10-42); BILIRUBIN,TOTAL 0.3 mg/dL (0.2-1.0); BUN - BLOOD UREA NITROGEN 7 mg/dL (6-20); CALCIUM 7.9 mg/dL (8.5-10.3); CARBON DIOXIDE - CO2 25 mmol/L (21-32); CHLORIDE 106 mmol/L (101-111); CHOLESTEROL 142 mg/dL; CREATININE 0.6 mg/dL (0.4-1.0); GFR - MDRD 109 (>89); GLUCOSE 89 mg/dL (70-100); HDL CHOLESTEROL 72 mg/dL; IRON 24 ug/dL (28-170); LDL CHOLESTEROL,CALCULATED 61 mg/dL; LDL/HDL RATIO 0.8 (<4.4); POTASSIUM 3.9 mmol/L (3.5-5.0); SODIUM 138 mmol/L (135-145); TOTAL IRON BINDING CAPACITY 284 ug/dL (250-450); TOTAL PROTEIN 6.8 g/dL (6.7-8.2); TRANSFERRIN 203 mg/dL (192-382); TRIGLYCERIDES 47 mg/dL; VLDL CHOLESTEROL 9 mg/dL
[2021-02-01 13:00] LABS: FERRITIN 5.4 ng/mL (11.0-306.8)
== END 2021-02-01 23:59 | disposition home or self-care (01) ==
LOC: LAB.WCP 08:00
PROVIDERS: ATTEND Family Medicine
DX: E05.90 Thyrotoxicosis, unspecified without thyrotoxic crisis or storm (principal); Z98.84 Bariatric surgery status; Z79.899 Other long term (current) drug therapy
CPT/HCPCS: 36415; 80050; 80061; 82607; 82728; 83036; 83540; 83721; 84466

== ENCOUNTER 2021-02-06 08:00 | Outpatient (CLI) | payer MEDICAID ==
[2021-02-06 18:54] LABS: FECAL OCCULT BLOOD (FIT) POSITIVE (NEGATIVE)
== END 2021-02-06 23:59 | disposition home or self-care (01) ==
LOC: LAB.R 08:00
PROVIDERS: ATTEND Family Medicine
DX: D64.9 Anemia, unspecified (principal)
CPT/HCPCS: 82274

== ENCOUNTER 2021-02-17 12:55 | Outpatient (CLI) | payer MEDICAID ==
--- NOTE | 2021-02-17 17:12 | DEXA Report ---
PROCEDURE: Dexa Spine and/or Hip INDICATIONS: FRACTURE OF PARTS OF L-SPINE AND PELVIS TECHNIQUE: Dual energy x-ray absorptiometry (DXA) was performed on a CodeRyte System. Regions measur ed are the AP Spine, femoral neck, and if needed forearm. COMPARISON: None. FINDINGS: Lumbar Spine: Bone Mineral Density 0.983 g/cm/cm,T score -1.6, osteopenia Left Hip: Bone Mineral Density 0.643 g/cm/cm,T score -2.9, osteoporosis Left Femoral Neck: Bone Mineral Density 0.675 g/cm/cm, T score -2.6, osteoporosis (T score greater or equal to -1.0: NORMAL) (T score from -1.1 to -2.4: OSTEOPENIA) (T score less than or equal to -2.5 to: OSTEOPOROSIS) Impression: Osteoporosis. Patients with diagnosis of osteoporosis or osteopenia should have regular bone mineral density assess ment. For those eligible for Medicare, routine testing is allowed once every 2 years. Testing frequ ency can be increased for patients who have rapidly progressing disease or for those who are receivin g medical therapy to restore bone mass. Reviewed by: Evi Bowen MD, PhD on 02/17/2021 5:11 PM PDT Approved by: Evi Bowen MD, PhD on 02/17/2021 5:11 PM PDT Station ID: [id number]
== END 2021-02-17 12:56 | disposition home or self-care (01) ==
LOC: DI 12:55
PROVIDERS: ATTEND Orthopaedic Surgery
DX: M81.0 Age-related osteoporosis without current pathological fracture (principal)

== ENCOUNTER 2021-02-22 09:09 | Outpatient (CLI) | payer MEDICAID ==
--- NOTE | 2021-02-22 11:00 | XRAY Report ---
PROCEDURE: Chest 1 View X-Ray INDICATIONS: DIARRHEA TECHNIQUE: One view of the chest was acquired. COMPARISON: None FINDINGS: Surgical changes and devices: None. Lungs and pleura: No pleural effusions or pneumothorax. Lungs are clear. Mediastinum: Mediastinal contours appear normal. Heart size is normal. Bones and chest wall: No suspicious bony lesions. Overlying soft tissues appear unremarkable. IMPRESSION: Normal chest x-ray. Reviewed by: Nii Petersen on 02/22/2021 10:59 AM PDT Approved by: Nii Petersen on 02/22/2021 10:59 AM PDT Station ID: [id number]
--- NOTE | 2021-02-22 11:02 | XRAY Report ---
PROCEDURE: Abdomen 1 View X-Ray INDICATIONS: DIARRHEA TECHNIQUE: 1 view of the abdomen were acquired. COMPARISON: None FINDINGS: Surgical changes and devices: Status post cholecystectomy. Bowel: No pneumoperitoneum. A large amount of fecal matter is seen throughout the colon consistent w ith stool or semisolid stool. No evidence of obstruction. There is air to the rectum. Soft tissues: No masses; visualized solid organ contours appear normal in size. No suspicious abdom inal calcifications. Bones: No suspicious bony abnormalities. IMPRESSION: Increased stool throughout the colon. No free air, pneumatosis, or portal venous gas. Reviewed by: Nii Petersen on 02/22/2021 11:01 AM PDT Approved by: Nii Petersen on 02/22/2021 11:01 AM PDT Station ID: [id number]
== END 2021-02-22 09:10 | disposition home or self-care (01) ==
LOC: DI 09:09
PROVIDERS: ATTEND Surgery
DX: R19.7 Diarrhea, unspecified (principal)

== ENCOUNTER 2021-03-17 15:12 | Outpatient (CLI) | payer MEDICAID | END 2021-03-17 15:13 | disposition home or self-care (01) | LOC: COV 15:12 | PROVIDERS: ATTEND Surgery | DX: Z01.812 Encounter for preprocedural laboratory examination (principal); D64.9 Anemia, unspecified; R19.4 Change in bowel habit; G89.29 Other chronic pain; Z20.822 Contact with and (suspected) exposure to COVID-19 ==

== ENCOUNTER 2021-03-22 09:27 | Day surgery (SDC) | payer MEDICAID ==
--- OUTSIDE RECORDS SUMMARY | 2021-03-22 09:31 | EXTERNAL MEDICAL SUMMARY RPT | Continuity of Care Document ---
:1975 Demographics Phone Unavailable Preferred Language Unknown Marital Status Unknown Denominational Affiliation Unknown Race Unknown Ethnic Group Unknown Author Organization [place] Address [address] [place] [address] Phone Allergies Encounters Medications Problems Results
[2021-03-22 09:52] LABS: HCG UR QUAL NEGATIVE
[2021-03-22] MEDS ORDERED: LIDOCAINE-MPF 2% 5 ML VIAL ONE (10:13)
[2021-03-22] MEDS ORDERED: MIDAZOLAM 2 MG/2 ML VIAL ONE (10:13)
[2021-03-22] MEDS ORDERED: PROPOFOL 200 MG/20 ML VIAL IVP ONE ×3 (10:13→11:50)
[2021-03-22] MEDS ORDERED: LACTATED RINGERS 1,000 ML IV ONE ×2 (10:15→12:15)
[2021-03-22] MEDS ORDERED: MORPHINE 2 MG/ML CARPUJECT IVP PRN (10:24)
[2021-03-22] MEDS ORDERED: ATROPINE ABBOJECT 1 MG/10 ML SYRINGE IVP PRN (10:24)
[2021-03-22] MEDS ORDERED: fentaNYL 100 MCG/2 ML VIAL IVP PRN (10:24)
[2021-03-22] MEDS ORDERED: NALOXONE 0.4 MG/ML VIAL IVP PRN (10:24)
[2021-03-22] MEDS ORDERED: ePHEDrine 50 MG/ML VIAL IVP PRN (10:24)
[2021-03-22] MEDS ORDERED: ONDANSETRON 4 MG/2 ML VIAL IVP PRN (10:24)
[2021-03-22] MEDS ORDERED: HYDROmorphone 0.5 MG/0.5 ML SYRINGE IVP PRN (10:24)
[2021-03-22] MEDS ORDERED: METOCLOPRAMIDE 10 MG/2 ML VIAL IVP PRN (10:24)
--- NOTE | 2021-03-22 10:24 | ANESTHESIA ---
Pre-Anesthesia VS, & Labs - Diagnosis anemia, change in bowel habits - Procedure egd, cscope Vital Signs: Temp Pulse Resp BP Pulse Ox 36.8 C 77 18 103/82 H 100 03/22/21 09:40 03/22/21 09:40 03/22/21 09:40 03/22/21 09:40 03/22/21 09:40 Height: 5 ft 6 in Weight (kg): 58.6 kg Body Mass Index: 20.8 BMI Classification: Healthy weight - NPO >8 hours - Is Patient ?: No - Lab Results Lab results reviewed: Yes Home Medications and Allergies Home Medications: Ambulatory Orders Gabapentin [Neurontin] 100 mg PO BID 03/22/21 Propranolol [Inderal] 10 mg PO 03/22/21 FLUoxetine [PROzac] 10 mg PO DAILY 03/25/15 Dextroamphetamine/Amphetamine [Adderall 30 mg Tablet] 35 mg PO DAILY 07/26/17 QUEtiapine [SEROquel] 50 mg PO QPM 01/02/19 Gabapentin [Neurontin] 100 mg PO BID 03/22/21 Propranolol [Inderal] 10 mg PO 03/22/21 Allergies/Adverse Reactions: Allergies Allergy/AdvReac Type Severity Reaction Status Date / Time Heparin Analogues Allergy Mild Rash Verified 02/17/21 09:56 topiramate [From Topamax] Allergy Unknown Verified 02/17/21 09:56 Anes History & Medical History - Anesthetic History Anesthesia Complications: reports: No previous complications Family history of Anesthesia Complications: Denies Family history of Malignant Hyperthermia: Denies - Medical History Cardiovascular: reports: None Pulmonary: reports: None Gastrointestinal: reports: None Urinary: reports: None Neuro: reports: None Musculoskeletal: reports: None Endocrine/Autoimmune: reports: HyPERthyroidism Blood Disorders: reports: None Skin: reports: None Smoking Status: Never smoker - Surgical History General: reports: Cholecystectomy, EGD, Other Orthopedic: reports: Other Exam General: Alert, Oriented x3, Cooperative Dental: WNL Mouth Openin Fingerbreadth Neck Mobility: Normal Mallampati classification: II Thyromental Distance: 4-6 cm Respiratory: Lungs clear, Normal breath sounds, No respiratory distress Cardiovascular: Regular rate Neurological: Normal speech Mental/Cognitive Status: Alert/Oriented X3, Normal for patient Cognitive Status: Within normal limits Plan Anesthesia Type: Total IV Consent for Procedure(s) Verified and Reviewed: Yes Code Status: Attempt Resuscitation ASA classification: 2-Mild systemic disease Is this case an emergency?: No
[2021-03-22] MEDS ORDERED: LACTATED RINGERS 1,000 ML IV SCH (11:00)
--- NOTE | 2021-03-22 11:12 | HISTORY & PHYSICAL EXAMINATION ---
Chief Complaint - Chief Complaint Chief Complaint: anemia History of Present Illness - History Obtained From Records Reviewed: yes History obtained from: pt Exam Limitations: none - History of Present Illness HPI Comment/Other: She has history of gastric surgery and colon problems. 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 : reports: None HEENT: reports: None Psych: reports: Depression Musculoskeletal: reports: None Derm: reports: None MRSA Hx?: No - Past Surgical History General: reports: Cholecystectomy, EGD, Other Ortho: reports: Other - POLST Patient has POLST: No Meds/Allgy - Home Medications Home Medications: Ambulatory Orders Medication Instructions Recorded Confirmed FLUoxetine [PROzac] 10 mg PO DAILY 03/25/15 02/17/21 Dextroamphetamine/Amphetamine 35 mg PO DAILY 07/26/17 02/17/21 [Adderall 30 mg Tablet] QUEtiapine [SEROquel] 50 mg PO QPM 01/02/19 02/17/21 Gabapentin [Neurontin] 100 mg PO BID 03/22/21 03/22/21 Propranolol [Inderal] 10 mg PO 03/22/21 - Allergies Allergies/Adverse Reactions: Allergies Allergy/AdvReac Type Severity Reaction Status Date / Time Heparin Analogues Allergy Mild Rash Verified 02/17/21 09:56 topiramate [From Topamax] Allergy Unknown Verified 02/17/21 09:56 Review of Systems - Constitutional Constitutional: reports: Fatigue (10 pt ros as above otherwise unremarkable) Exam - Vital Signs Reviewed Vital Signs: Yes Vital Signs: Vital Signs x48h Temp Pulse Resp BP Pulse Ox 03/22/21 09:40 36.8 C 77 18 103/82 H 100 - Physical Exam General Appearance: positive: No acute distress, Alert Eyes Bilateral: positive: PERRL, EOMI ENT: positive: No signs of dehydration Neck: positive: No JVD Respiratory: positive: Breath sounds nml Cardiovascular: positive: Regular rate & rhythm Abdomen: positive: Non-tender, No distention Neurologic/Psychiatric: positive: Oriented x3 Conclusion/Plan - Problem List (1) Anemia Conclusion/Plan: plan egd and colonoscopy. parq held and consent obtained - Lab Results Lab results reviewed: Yes
[2021-03-22] MEDS ORDERED: IOPAMIDOL-300 50 ML VIAL ONE ×2 (13:55→13:59)
[2021-03-22] MEDS ORDERED: IOVERSOL 320 100 ML VIAL IVP ONE ×2 (13:56→16:32)
[2021-03-22 15:50] VITALS: BP 112/72
[2021-03-22] MEDS ORDERED: IOPAMIDOL-300 50 ML VIAL PO ONE (16:32)
--- NOTE | 2021-03-22 16:37 | CT Report ---
PROCEDURE: Abdomen/Pelvis W INDICATIONS: INCOMPLETE COLONOSCOPY CONTRAST: IV CONTRAST: Optiray 320 ml: 100 PO CONTRAST: Isovue 300 ml50 TECHNIQUE: After the administration of oral and intravenous contrast, 5 mm thick sections acquired from the diap hragms to the symphysis. 5 mm thick coronal and sagittal reformats were acquired. For radiation dos e reduction, the following was used: automated exposure control, adjustment of mA and/or kV accordin g to patient size. COMPARISON: March 26, 2015 FINDINGS: Image quality: Excellent. ABDOMEN: Lung bases: Lung bases are clear. Heart size is normal. Prior gastric surgery associated with hiat al hernia and distal esophageal wall thickening. Solid organs: Liver has diffusely decreased attenuation without focal mass lesion. Spleen unremarkabl e. Gallbladder certainly absent. Proximal common bile duct measures up to 1.4 cm diameter, stable fro m the prior. Biliary system is non dilated. Pancreas enhances normally. No adrenal nodules. Kidne ys demonstrate normal size and enhancement, without hydronephrosis. Peritoneum and bowel: The second is under distended and shows smooth wall thickening. Remainder the c olon is well-distended with contrast without additional focus of wall thickening. The appendix is not identified, but no evidence of appendicitis. Mesenteric edema noted on the prior exam has resolved i n the interval. Rectal tube in place. Nodes and vessels: No retroperitoneal or mesenteric adenopathy by size criteria. Aorta and inferior vena cava are normal in size. Miscellaneous: There is now a small periumbilical hernia containing bowel without obstruction. PELVIS: Genitourinary: Bladder wall thickness is normal. Miscellaneous: No inguinal hernias or adenopathy. Bones: No suspicious bony lesions. No vertebral body compression fractures. Old healed pubic rami fractures noted. IMPRESSION: 1. Underdistended cecum shows smooth bowel wall thickening. Consider attention to the cecum on follow -up screening exam. Remainder the colon is unremarkable. 2. Cholecystectomy and dilated proximal common bile duct, stable from priors. 3. Prior gastric surgery associated with hiatal hernia and distal esophageal wall thickening may refl ect chronic esophagitis. 4. Old healed pubic rami fractures, new from 2014 Reviewed by: Yury Hoffman MD on 03/22/2021 3:36 PM AKDT Approved by: Yury Hoffman MD on 03/22/2021 3:36 PM AKDT Station ID: [id number]
--- NOTE | 2021-03-22 19:30 | ANESTHESIA POST OP EVALUATION ---
Anesthesia Post Eval - Post Anesthesia Eval Vitals: Last Vital Signs Temp 36.9 C 03/22/21 15:45 Pulse 70 03/22/21 15:45 Resp 15 03/22/21 15:45 BP 112/72 03/22/21 15:45 Pulse Ox 100 03/22/21 15:45 CV Function Including HR & BP: Stable Pain Control: Satisfactory Nausea & Vomiting: Negative Mental Status: Baseline Respiratory Status: Airway Patent Hydration Status: Satisfactory Anesthesia Complications: None
== END 2021-03-22 09:28 | disposition home or self-care (01) ==
LOC: SDS 09:27
PROVIDERS: ATTEND Surgery
PROC: 0DBM8ZX Excision of Descending Colon, Via Natural or Artificial Opening Endoscopic, Diagnostic (ICD-10-PCS; principal; 2021-03-22 12:00)
PROC: 0DJ08ZZ Inspection of Upper Intestinal Tract, Via Natural or Artificial Opening Endoscopic (ICD-10-PCS; 2021-03-22 12:00)
DX: D64.9 Anemia, unspecified (principal); R19.4 Change in bowel habit; D12.4 Benign neoplasm of descending colon; G89.29 Other chronic pain
CPT/HCPCS: 43235; 45380; 74177; 81025; J7120; Q9967; 88305

== ENCOUNTER 2021-10-11 07:56 | Outpatient (CLI) | payer MEDICAID ==
[2021-10-11 11:53] LABS: BASOPHILS # (AUTO) 0.1 10^3/uL (0.0-0.1); BASOPHILS % (AUTO) 1.4 %; EOSINOPHILS # (AUTO) 0.4 10^3/uL (0.0-0.7); EOSINOPHILS % (AUTO) 6.2 %; HCT - HEMATOCRIT 37.6 % (37.0-47.0); LYMPHOCYTES # (AUTO) 1.4 10^3/uL (1.5-3.5); LYMPHOCYTES % (AUTO) 24.6 %; MEAN CORPUSCULAR HEMOGLOBIN 31.2 pg (27.0-31.0); MEAN CORPUSCULAR HGB CONC 31.9 g/dL (32.0-36.0); MEAN CORPUSCULAR VOLUME 97.7 fL (81.0-99.0); MONOCYTES # (AUTO) 0.5 10^3/uL (0.0-1.0); MONOCYTES % (AUTO) 8.5 %; NEUTROPHILS # (AUTO) 3.4 10^3/uL (1.5-6.6); NEUTROPHILS % (AUTO) 58.6 %; PLT - PLATELET COUNT 389 10^3/uL (130-450); RED BLOOD COUNT 3.85 10^6/uL (4.20-5.40); RED CELL DISTRIBUTION WIDTH 13.2 % (12.0-15.0); WHITE BLOOD COUNT 5.8 x10^3/uL (4.8-10.8)
[2021-10-11 12:39] LABS: % IRON SATURATION 12 % (20-50); ALBUMIN 3.1 g/dL (3.2-5.5); ALBUMIN/GLOBULIN RATIO 0.8 (1.0-2.2); ALKALINE PHOSPHATASE 158 IU/L (42-121); ALT ALANINE AMINOTRANSFERASE 23 IU/L (10-60); AST ASPARTATE AMINOTRANSFERASE 32 IU/L (10-42); BILIRUBIN,TOTAL 0.5 mg/dL (0.2-1.0); BUN - BLOOD UREA NITROGEN 10 mg/dL (6-20); CALCIUM 8.1 mg/dL (8.5-10.3); CARBON DIOXIDE - CO2 29 mmol/L (21-32); CHLORIDE 99 mmol/L (101-111); CHOLESTEROL 132 mg/dL; CREATININE 0.8 mg/dL (0.4-1.0); GFR - MDRD 78 (>89); GLUCOSE 98 mg/dL (70-100); HDL CHOLESTEROL 66 mg/dL; IRON 40 ug/dL (28-170); LDL CHOLESTEROL,CALCULATED 55 mg/dL; LDL/HDL RATIO 0.8 (<4.4); SODIUM 138 mmol/L (135-145); TOTAL IRON BINDING CAPACITY 343 ug/dL (250-450); TOTAL PROTEIN 6.8 g/dL (6.7-8.2); TRANSFERRIN 245 mg/dL (192-382); TRIGLYCERIDES 53 mg/dL; URIC ACID 4.4 mg/dL (2.6-7.2); VLDL CHOLESTEROL 11 mg/dL
[2021-10-11 12:42] LABS: CRP - C-REACTIVE PROTEIN < 1.0 mg/dL (0-1.0)
[2021-10-11 12:43] LABS: THYROID STIMULATING HORMONE 3.41 uIU/mL (0.34-5.60)
[2021-10-11 12:50] LABS: FERRITIN 13.9 ng/mL (11.0-306.8)
[2021-10-11 20:41] LABS: ESTIMATED AVERAGE GLUCOSE 111 mg/dL (70-100); HEMOGLOBIN A1c% 5.5 % (4.27-6.07)
== END 2021-10-11 23:59 | disposition home or self-care (01) ==
LOC: LAB.WCP 07:56
PROVIDERS: ATTEND Family Medicine
DX: M25.50 Pain in unspecified joint (principal); Z98.84 Bariatric surgery status; D64.9 Anemia, unspecified
CPT/HCPCS: 36415; 80050; 80061; 82607; 82728; 83036; 83540; 83721; 84466; 84550; 85651; 86140

== ENCOUNTER 2022-08-31 23:43 | Emergency (ER) | payer MEDICAID ==
--- NOTE | 2022-09-01 00:21 | ED Physician Documentation ---
PD HPI BACK PAIN - Stated complaint Stated Complaint: LOW BACK PAIN - Chief complaint Chief Complaint: Back Pain - History obtained from History obtained from: Patient - History of Present Illness Timing - onset: Enter time (20:30), Today Timing - details: Abrupt onset Pain level now: 8 Location: Left Quality: Pain, Spasm Associated symptoms: No: Fever, Weakness, Numbness, Incontinent of urine, Unable to urinate, Hematuria Improves with: Nothing Worsened by: Other (no exacerbating factors) Similar symptoms before: Has not had sx before Recently seen: Not recently seen - Additional information Additional information: c/o sudden onset left flank pain at 8:30 PM tonight while lying in bed reading. Pain is waxing and waning without apparent exacerbating/ameliorating factors, and associated with nausea but no vomiting. Denies h/o similar symptoms. Review of Systems Constitutional: denies: Fever, Chills, Sweats Cardiac: reports: Reviewed and negative Respiratory: reports: Reviewed and negative GI: reports: Abdominal Pain (left flank pain radiates around to LLQ at times), Nausea. 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 : None HEENT: None Psych: Depression Musculoskeletal: None Derm: None - Past Surgical History Past Surgical History: Yes General: Cholecystectomy, EGD, Other Ortho: Other - Present Medications Home Medications: Ambulatory Orders Medication Instructions Recorded Confirmed FLUoxetine [PROzac] 10 mg PO DAILY 03/25/15 09/01/22 Dextroamphetamine/Amphetamine 35 mg PO DAILY 07/26/17 09/01/22 [Adderall 30 mg Tablet] QUEtiapine [SEROquel] 50 mg PO QPM 01/02/19 09/01/22 Gabapentin [Neurontin] 100 mg PO BID 03/22/21 09/01/22 Propranolol [Inderal] 10 mg PO DAILY 03/22/21 09/01/22 Ondansetron Odt [Zofran Odt] 4 mg TL Q6H PRN #10 tablet 09/01/22 Oxycodone HCl/Acetaminophen 1 - 2 each PO Q6H PRN #14 tablet 09/01/22 [Percocet 5-325 mg Tablet] Tamsulosin [Flomax] 0.4 mg PO DAILY #6 cap 09/01/22 - Allergies Allergies/Adverse Reactions: Allergies Allergy/AdvReac Type Severity Reaction Status Date / Time Heparin Analogues Allergy Mild Rash Verified 08/31/22 23:58 topiramate [From Topamax] Allergy Unknown Verified 08/31/22 23:58 - Social History Does the pt smoke?: No Smoking Status: Never smoker Does the pt drink ETOH?: Yes Does the pt have substance abuse?: No - Immunizations Immunizations are current?: Yes - POLST Patient has POLST: No PD ED PE NORMAL - Vitals Vital signs reviewed: Yes - General General: Alert and oriented X 3, Well developed/nourished, Other (appears to be in moderate painful distress during H+P, waxing and waning intensity) - HEENT HEENT: Moist mucous membranes - Cardiac Cardiac: RRR, No murmur - Respiratory Respiratory: No respiratory distress, Clear bilaterally - Abdomen Abdomen: Soft, Non distended, Other (mild TTP LLQ without rebound or guarding) - Back Back: No CVA TTP - Derm Derm: Normal color, Warm and dry, No rash Results - Vitals Vitals: Vital Signs - 24 hr 08/31/22 09/01/22 09/01/22 23:55 00:59 01:43 Temperature 36.1 C L Heart Rate 60 61 64 Respiratory 16 21 16 Rate Blood Pressure 108/63 109/69 O2 Saturation 100 100 99 09/01/22 09/01/22 09/01/22 03:45 04:38 04:59 Temperature 36.9 C Heart Rate 68 Respiratory 15 15 16 Rate Blood Pressure 98/81 H O2 Saturation 98 Oxygen O2 Source Room air - Labs Labs: Laboratory Tests 09/01/22 09/01/22 09/01/22 00:41 00:41 02:30 WBC 8.0 RBC 3.43 L Hgb 10.1 L Hct 33.4 L MCV 97.4 MCH 29.4 MCHC 30.2 L RDW 13.3 Plt Count 358 MPV 9.5 Neut # (Auto) 6.4 Lymph # (Auto) 0.9 L [place] # (Auto) 0.5 Eos # (Auto) 0.1 Baso # (Auto) 0.1 Absolute Nucleated RBC 0.00 Nucleated RBC % 0.0 Sodium 135 Potassium 4.5 Chloride 103 Carbon Dioxide 25 Anion Gap 7.0 BUN 21 H Creatinine 0.9 Estimated GFR (MDRD) 68 L Glucose 118 H Calcium 8.6 Total Bilirubin 0.4 AST 29 ALT 26 Alkaline Phosphatase 89 Total Protein 7.0 Albumin 3.7 Globulin 3.3 Albumin/Globulin Ratio 1.1 Lipase 35 Urine Color YELLOW Urine Clarity CLEAR Urine pH 6.0 Ur Specific [place] 1.015 Urine Protein NEGATIVE Urine Glucose (UA) NEGATIVE Urine Ketones NEGATIVE Urine Occult Blood NEGATIVE Urine Nitrite NEGATIVE Urine Bilirubin NEGATIVE Urine Urobilinogen 0.2 (NORMAL) Ur Leukocyte Esterase NEGATIVE Ur Microscopic Review NOT INDICATED Urine Culture Comments NOT INDICATED Urine HCG, Qual 09/01/22 02:30 WBC RBC Hgb Hct MCV MCH MCHC RDW Plt Count MPV Neut # (Auto) Lymph # (Auto) [place] # (Auto) Eos # (Auto) Baso # (Auto) Absolute Nucleated RBC Nucleated RBC % Sodium Potassium Chloride Carbon Dioxide Anion Gap BUN Creatinine Estimated GFR (MDRD) Glucose Calcium Total Bilirubin AST ALT Alkaline Phosphatase Total Protein Albumin Globulin Albumin/Globulin Ratio Lipase Urine Color Urine Clarity Urine pH Ur Specific [place] Urine Protein Urine Glucose (UA) Urine Ketones Urine Occult Blood Urine Nitrite Urine Bilirubin Urine Urobilinogen Ur Leukocyte Esterase Ur Microscopic Review Urine Culture Comments Urine HCG, Qual NEGATIVE - Rads (name of study) CT A/P with IV contrast Radiology: Prelim report reviewed, See rad report PD MEDICAL DECISION MAKING - ED course Complexity details: reviewed results, re-evaluated patient, considered differential, d/w patient ED course: sudden onset left flank pain with other elements of HPI s/o renal colic. She has some TTP on exam of LLQ and thus CT A/P is done with IV contrast. The CT shows 1.5mm left ureteral calculus near UVJ as well as left hydroureter and hydronephrosis. She reports excellent symptom relief with 15mg IV toradol and 1mg IV dilaudid. She is also given 1 liter NS bolus. She is in NAD on reevaluation. Results / diagnosis/ prognosis discussed. Return precautions discussed. She is also given flomax PO and rx for flomax, zofran, and percocet (as well as take-home pack of percocet). I am prescribing a short course of short-acting opioid pain medication for this patient. 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 I have discussed that the opioids are for short term therapy only, and will not be refilled from the ED. Departure - Departure Disposition: 01 Home, Self Care Clinical Impression: Renal colic on left side Condition: Good Instructions: ED Stone Renal W Colic Prescriptions: Tamsulosin [Flomax] 0.4 mg PO DAILY #6 cap Oxycodone HCl/Acetaminophen [Percocet 5-325 mg Tablet] 1 - 2 each PO Q6H PRN #14 tablet PRN Reason: pain Ondansetron Odt [Zofran Odt] 4 mg TL Q6H PRN #10 tablet PRN Reason: Nausea / Vomiting Comments: You have a small kidney stone (1.6 mm) at the bottom of the left ureter, which is the narrow connection between the kidney and the bladder. A stone of this size is almost certainly going to pass without needing a procedure to remove it, and it's location is almost in the bladder. Once the stone passes from the ureter into the bladder, your symptoms will resolve and the stone will come out the next time you urinate (you will not feel it come out from the bladder). Prescriptions for flomax (increases likelihood of passing the stone and decreases time until passage), percocet (narcotic pain medication), and ondansetron (anti-nausea medication) have been electronically submitted to [facility] pharmacy in [place]. I am prescribing a short course of narcotic pain medication for you. These are potentially dangerous and addictive medications that should be used carefully. These medications may constipate you. Take an [id number]-[id number] stool softener (docusate) twice daily with plenty of water while taking these medications. If you go 24 hours without a bowel movement, take [id number] miralax, per package instructions. Do not drink or drive while taking these medications. If you received narcotic or sedating medications while in the emergency department, do not drive for 24 hours. Store this medication in a safe, secure place and out of reach of children. It is a violation of federal law to give or sell this medication to another person or to use in a manner other than prescribed. The ED will not refill narcotic prescriptions, including prescriptions lost or stolen. To dispose of unwanted medications: 1. [facility] at [address] in [place] has a medication drop box. They accept prescription medications (in pill form) Saturday through Saturday 9:00 a.m. to 5:00 p.m. 2. The [facility] accepts prescription medications (in pill form only) for disposal year round. Call for more information. 3. Contact the [facility] for the next [facility] sponsored prescription drug collection event. , [phone], or [phone]; Discharge Date/Time: 09/01/22 05:16
[2022-09-01] MEDS ORDERED: SODIUM CHLORIDE 0.9% 1,000 ML IV STA (00:31)
[2022-09-01] MEDS ORDERED: HYDROmorphone 1 MG/ML CARPUJECT IVP STA (00:31)
[2022-09-01] MEDS ORDERED: KETOROLAC 15 MG/ML VIAL IVP STA (00:31)
[2022-09-01 00:47] LABS: BASOPHILS # (AUTO) 0.1 10^3/uL (0.0-0.1); BASOPHILS % (AUTO) 0.6 %; EOSINOPHILS # (AUTO) 0.1 10^3/uL (0.0-0.7); HCT - HEMATOCRIT 33.4 % (37.0-47.0); HGB - HEMOGLOBIN 10.1 g/dL (12.0-16.0); LYMPHOCYTES # (AUTO) 0.9 10^3/uL (1.5-3.5); LYMPHOCYTES % (AUTO) 11.2 %; MEAN CORPUSCULAR HEMOGLOBIN 29.4 pg (27.0-31.0); MEAN CORPUSCULAR HGB CONC 30.2 g/dL (32.0-36.0); MEAN CORPUSCULAR VOLUME 97.4 fL (81.0-99.0); MEAN PLATELET VOLUME 9.5 fL (7.9-10.8); MONOCYTES # (AUTO) 0.5 10^3/uL (0.0-1.0); MONOCYTES % (AUTO) 6.6 %; NEUTROPHILS # (AUTO) 6.4 10^3/uL (1.5-6.6); NEUTROPHILS % (AUTO) 80.2 %; PLT - PLATELET COUNT 358 10^3/uL (130-450); RED BLOOD COUNT 3.43 10^6/uL (4.20-5.40); RED CELL DISTRIBUTION WIDTH 13.3 % (12.0-15.0)
[2022-09-01] MEDS ORDERED: iohexoL-300 100 ML VIAL ONE (00:59)
[2022-09-01 01:07] LABS: ALBUMIN 3.7 g/dL (3.2-5.5); ALBUMIN/GLOBULIN RATIO 1.1 (1.0-2.2); BILIRUBIN,TOTAL 0.4 mg/dL (0.2-1.0); CALCIUM 8.6 mg/dL (8.5-10.3); CREATININE 0.9 mg/dL (0.4-1.0); POTASSIUM 4.5 mmol/L (3.5-5.0)
[2022-09-01] MEDS ORDERED: iohexoL-300 100 ML VIAL IVP ONE (01:43)
[2022-09-01 02:49] LABS: BILIRUBIN,URINE NEGATIVE (NEGATIVE); GLUCOSE, URINE (UA) NEGATIVE (NEGATIVE); KETONES,URINE (UA) NEGATIVE (NEGATIVE); LEUKOCYTE ESTERASE, URINE NEGATIVE (NEGATIVE); NITRITE,URINE NEGATIVE (NEGATIVE); OCCULT BLOOD,URINE NEGATIVE (NEGATIVE); PROTEIN,URINE NEGATIVE (NEGATIVE); UROBILINOGEN,URINE 0.2 (NORMAL) E.U./dL (NORMAL)
[2022-09-01 02:50] LABS: CLARITY,URINE CLEAR (CLEAR); HCG UR QUAL NEGATIVE
[2022-09-01 04:39] VITALS: BP 98/81
[2022-09-01] MEDS ORDERED: TAMSULOSIN 0.4 MG CAPSULE PO STA (05:03)
[2022-09-01] MEDS ORDERED: oxyCODONE/ACET 5/325 Prepack 4 PO STA (05:03)
--- NOTE | 2022-09-01 08:49 | CT Report ---
PROCEDURE: CT abdomen pelvis with contrast INDICATIONS: left flank pain, LLQ tenderness CONTRAST: 100 ml omni 300 TECHNIQUE: After the administration of contrast, 5 mm thick sections acquired from the diaphragms to the sym physis. 5 mm thick coronal and sagittal reformats were acquired. For radiation dose reduction, the following was used: automated exposure control, adjustment of mA and/or kV according to patient size . COMPARISON: March 22, 2021 FINDINGS: Image quality: Excellent. ABDOMEN: Lung bases: Lung bases are clear. Heart size is normal. Small hiatal hernia Solid organs: Liver and spleen are normal in size and enhancement. Gallbladder surgically absent. I ntra and extrahepatic bile duct are prominent. Distal CBD measures up to 1.5 cm Biliary system is no n dilated. Pancreas enhances normally. No adrenal nodules. Mild left hydronephrosis/hydroureter results from a 1.6 mm calculus in the distal left ureter just pr oximal to the ureterovesical junction. Peritoneum and bowel: Bowel loops demonstrate normal wall thickness and caliber. No free fluid or a ir. Prior gastric surgery noted. Patulous small bowel segments associated with anastomotic suture li ne Nodes and vessels: No retroperitoneal or mesenteric adenopathy by size criteria. Aorta and inferior vena cava are normal in size. Miscellaneous: No ventral hernias. PELVIS: Genitourinary: Bladder wall thickness is normal. Miscellaneous: No inguinal hernias or adenopathy. Bones: No suspicious bony lesions. No vertebral body compression fractures. IMPRESSION: 1. Left-sided hydronephrosis/hydroureter results from 1.6 mm distal left ureteral calculus. 2. Cholecystectomy. Intra and extrahepatic prominent bile ducts remain mildly prior Note: Final report is concordant with preliminary interpretation provided by [employer] Reviewed by: Yury Hoffman MD on 09/01/2022 7:47 AM JACKIE Approved by: Yury Hoffman MD on 09/01/2022 7:47 AM AKDT Station ID: [id number]
== END 2022-09-01 05:16 | disposition home or self-care (01) ==
LOC: ED 23:43
DX: N13.2 Hydronephrosis with renal and ureteral calculous obstruction (principal)
CPT/HCPCS: 36415; 74177; 80053; 81003; 81025; 83690; 85025; 96374; 96375; 99284; A9270; J1170; Q9967; 81001; 87086

== ENCOUNTER 2022-12-10 16:05 | Emergency (ER) | payer MEDICAID ==
[2022-12-10 16:31] LABS: MUDS CUTOFF CONCENTRATIONS CUTOFF CONC BELOW:
[2022-12-10 16:38] LABS: HCG UR QUAL NEGATIVE
[2022-12-10 16:41] LABS: BASOPHILS # (AUTO) 0.1 10^3/uL (0.0-0.1); BASOPHILS % (AUTO) 0.9 %; EOSINOPHILS # (AUTO) 0.1 10^3/uL (0.0-0.7); EOSINOPHILS % (AUTO) 1.2 %; HCT - HEMATOCRIT 42.5 % (37.0-47.0); HGB - HEMOGLOBIN 13.4 g/dL (12.0-16.0); LYMPHOCYTES # (AUTO) 2.8 10^3/uL (1.5-3.5); LYMPHOCYTES % (AUTO) 29.9 %; MEAN CORPUSCULAR HEMOGLOBIN 28.9 pg (27.0-31.0); MEAN CORPUSCULAR HGB CONC 31.5 g/dL (32.0-36.0); MEAN CORPUSCULAR VOLUME 91.8 fL (81.0-99.0); MEAN PLATELET VOLUME 9.5 fL (7.9-10.8); MONOCYTES # (AUTO) 0.7 10^3/uL (0.0-1.0); MONOCYTES % (AUTO) 7.8 %; NEUTROPHILS # (AUTO) 5.5 10^3/uL (1.5-6.6); NEUTROPHILS % (AUTO) 59.5 %; PLT - PLATELET COUNT 361 10^3/uL (130-450); RED BLOOD COUNT 4.63 10^6/uL (4.20-5.40); RED CELL DISTRIBUTION WIDTH 14.3 % (12.0-15.0); WHITE BLOOD COUNT 9.2 x10^3/uL (4.8-10.8)
[2022-12-10 16:43] LABS: AMPHETAMINE SCREEN,URINE POSITIVE (NEGATIVE); BARBITURATE SCREEN,UR NEGATIVE (NEGATIVE); BENZODIAZEPINES SCREEN, URINE NEGATIVE (NEGATIVE); COCAINE SCREEN URINE NEGATIVE (NEGATIVE); METHADONE SCREEN, URINE NEGATIVE (NEGATIVE); METHAMPHETAMINES SCREEN, URINE NEGATIVE (NEGATIVE); OPIATE SCREEN, URINE NEGATIVE (NEGATIVE); OXYCODONE SCREEN, URINE NEGATIVE (NEGATIVE); PROPOXYPHENE SCREEN, URINE NEGATIVE (NEGATIVE); THC CANNABINOID SCREEN, URINE POSITIVE (NEGATIVE); TRICYCLIC ANTIDEPRESSANT,URINE POSITIVE (NEGATIVE)
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
[2022-12-10 17:03] LABS: ACETAMINOPHEN < 10 ug/mL (10-30); ALKALINE PHOSPHATASE 102 IU/L (42-121); ALT ALANINE AMINOTRANSFERASE 33 IU/L (10-60); AST ASPARTATE AMINOTRANSFERASE 50 IU/L (10-42); BILIRUBIN,TOTAL 0.4 mg/dL (0.2-1.0); BUN - BLOOD UREA NITROGEN 12 mg/dL (6-20); CALCIUM 9.1 mg/dL (8.5-10.3); CARBON DIOXIDE - CO2 26 mmol/L (21-32); CHLORIDE 100 mmol/L (101-111); CREATININE 0.8 mg/dL (0.4-1.0); ETOH - ETHANOL < 5.0 mg/dL; GFR - MDRD 77 (>89); GLUCOSE 108 mg/dL (70-100); LIPASE 29 U/L (22-51); POTASSIUM 3.7 mmol/L (3.5-5.0); SALICYLATE < 6.0 mg/dL; SODIUM 135 mmol/L (135-145); TOTAL PROTEIN 7.9 g/dL (6.7-8.2)
[2022-12-10] MEDS ORDERED: NICOTINE 21 MG PATCH TOP STA (18:02)
[2022-12-10 19:07] LABS: BILIRUBIN,URINE NEGATIVE (NEGATIVE); GLUCOSE, URINE (UA) NEGATIVE (NEGATIVE); KETONES,URINE (UA) NEGATIVE (NEGATIVE); LEUKOCYTE ESTERASE, URINE TRACE (NEGATIVE); NITRITE,URINE NEGATIVE (NEGATIVE); OCCULT BLOOD,URINE NEGATIVE (NEGATIVE); PROTEIN,URINE NEGATIVE (NEGATIVE); UROBILINOGEN,URINE 2 E.U./dL (NORMAL)
[2022-12-10 19:11] LABS: CLARITY,URINE HAZY (CLEAR)
[2022-12-10 19:16] LABS: BACTERIA,URINE Rare /HPF (None Seen); RBC,URINE 0-5 /HPF (0-5); SQUAMOUS EPITHELIAL CELL,UR MANY Squamous (<= Few)
[2022-12-10] MEDS ORDERED: LORazepam 1 MG TABLET PO STA (20:18)
[2022-12-11] MEDS ORDERED: LORazepam 1 MG TABLET PO STA (00:38)
--- NOTE | 2022-12-11 00:42 | ED Physician Documentation ---
ED Addendum - Addendum Addendum: 12/11/22 00:37 EKG interpretation 12/11/2022 Sinus rhythm with rate 65 bpm. Normal axis. Normal NM, QRS, QTc intervals. No ST segment elevations or T wave inversions. 12/11/22 01:53 Patient received a signout from outgoing physician, please see their documentation for further detail. 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 I did order for some p.o. Ativan for agitation and anxiety while in the [facility] department. There were no other significant events throughout the evening. Plan at this time is for voluntary admission to [facility]. We will be signing out to the oncoming physician, please see their documentation for further detail. 12/11/22 20:03
[2022-12-11] MEDS ORDERED: NICOTINE 14 MG PATCH TOP STA (06:18)
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
[2022-12-11 10:03] VITALS: BP 133/90
== END 2022-12-11 10:15 ==
LOC: ED 16:05
DX: F32.A Depression, unspecified (principal); F41.9 Anxiety disorder, unspecified; E05.90 Thyrotoxicosis, unspecified without thyrotoxic crisis or storm; Z20.822 Contact with and (suspected) exposure to COVID-19; Z79.899 Other long term (current) drug therapy
CPT/HCPCS: 36415; 80053; 80306; 80307; 80320; 80329; 81001; 81025; 83690; 84443; 85025; 87635; 93005; 99283; 99285; A9270; J8499; 81003; 87086